=== PATIENT | female | born 1990 | race Caucasian/White ===

== ENCOUNTER 2022-02-13 06:00 | Inpatient (IN) | payer BC ==
[2022-02-14 22:44] VITALS: BMI 33.0
[2022-02-14] MEDS ORDERED: Misoprostol 200 MCG TAB PR PRN (22:59)
[2022-02-14] MEDS ORDERED: Ondansetron PF 4 MG/2 ML Vial IVP PRN (22:59)
[2022-02-14] MEDS ORDERED: hydrALAZINE 20 MG/ML VIAL SLOW IVP PRN (22:59)
[2022-02-14] MEDS ORDERED: Ibuprofen 800 MG TAB PO PRN (22:59)
[2022-02-14] MEDS ORDERED: Promethazine HCl 25 MG/ML VIAL IM PRN (22:59)
[2022-02-14] MEDS ORDERED: HYDROcodone/Acetaminophen 5/325 mg Tablet PO PRN ×2 (22:59)
[2022-02-14] MEDS ORDERED: Lidocaine 1% (PF) 30 ML VIAL SC PRN (22:59)
[2022-02-14] MEDS ORDERED: Butorphanol Tartrate 1 MG/ML VIAL SLOW IVP PRN (22:59)
[2022-02-14] MEDS ORDERED: NS w/ Oxytocin 30 units 500 ML IV SCH ×2 (23:00)
[2022-02-14] MEDS: Lactated Ringer's 1,000 ML IV SCH (23:24)
[2022-02-14 23:51] LABS: Hemoglobin 11.4 g/dL (12.0-15.5); Mean Corpuscular HGB CONC 34.4 g/dL (32.0-36.0); Mean Corpuscular Hemoglobin 31.1 pg (27.0-33.0); Mean Corpuscular Volume 90.4 fl (81.6-98.3); Mean Platelet Volume 11.8 fl (7.4-10.4); Platelet Count 207 10x3/uL (150-450); RBC Distribution Width 13.2 % (11.5-14.5); Red Blood Cell (RBC) Count 3.66 10x6/uL (3.90-5.03); White Blood Cell (WBC) Count 8.6 10x3/uL (3.5-10.5)
[2022-02-15 00:06] LABS: SARS-CoV-2 NAA Rapid Test Not Detected (NotDetected)
[2022-02-15 00:09] LABS: HBSAg Index 0.22 S/CO (0-0.99); Hep B Surf Ag Non-Reactive S/CO (NonReactive); Syphilis Antibody Nonreactive (Nonreactive); Syphilis Antibody Index 0.02 S/CO (<1.00 Non-Reactive)
[2022-02-15] MEDS ORDERED: Fentanyl 2 mcg/Bup 0.1% Cadd 100 ML ONE (05:27)
[2022-02-15] MEDS ORDERED: Promethazine HCl 25 MG/ML VIAL IM PRN (06:30)
[2022-02-15] MEDS ORDERED: ePHEDrine Sulfate 50 MG/10 ML VIAL SLOW IVP PRN (06:30)
[2022-02-15] MEDS ORDERED: diphenhydrAMINE 50 MG/ML VIAL IVP PRN (06:30)
[2022-02-15] MEDS ORDERED: Acetaminophen 325 MG TAB PO PRN (06:30)
[2022-02-15] MEDS ORDERED: Lactated Ringer's 500 ML IV PRN (06:30)
[2022-02-15] MEDS ORDERED: Moisturizing Cream (Eucerin) 113 GM JAR TOP PRN (06:30)
[2022-02-15] MEDS ORDERED: Communication Order-Pharmacy FS SCH (06:30)
[2022-02-15] MEDS ORDERED: Fentanyl 2 mcg/Bupivacaine 0.1% Cassette 100 ML EPIDURAL SCH (06:30)
[2022-02-15] MEDS ORDERED: Naloxone HCl 0.4 mg/ml Vial IVP PRN ×2 (06:30)
[2022-02-15] MEDS ORDERED: Ondansetron PF 4 MG/2 ML Vial IVP PRN ×2 (06:30→13:05)
[2022-02-15] MEDS ORDERED: hydrALAZINE 20 MG/ML VIAL SLOW IVP PRN (13:05)
[2022-02-15] MEDS ORDERED: Benzocaine-Menthol 82.5 ML CAN TOP PRN (13:05)
[2022-02-15] MEDS ORDERED: Bisacodyl 10 MG SUPP PR PRN (13:05)
[2022-02-15] MEDS ORDERED: HYDROcodone/Acetaminophen 5/325 mg Tablet PO PRN ×2 (13:05)
[2022-02-15] MEDS ORDERED: Lanolin Ointment 7 GM TUBE TOP PRN (13:05)
[2022-02-15] MEDS ORDERED: Milk Of Magnesia 30 ML UDCUP PO PRN (13:05)
[2022-02-15] MEDS ORDERED: NS w/ Oxytocin 30 units 500 ML IV SCH (13:05)
[2022-02-15] MEDS ORDERED: Misoprostol 200 MCG TAB VAG PRN (13:05)
[2022-02-15] MEDS ORDERED: Prenatal Vitamin 1 TAB PO SCH (13:30)
[2022-02-15] MEDS ORDERED: Docusate 100 MG CAP PO SCH (13:30)
[2022-02-15] MEDS: Ibuprofen 800 MG TAB PO SCH ×2 (13:34→22:10)
[2022-02-15] MEDS: Lactated Ringer's 1,000 ML IV SCH (15:04)
[2022-02-15] MEDS: Ferrous Sulfate 325 MG TAB PO SCH (18:08)
[2022-02-15] MEDS: Docusate 100 MG CAP PO SCH (22:09)
[2022-02-16] MEDS: Ibuprofen 800 MG TAB PO SCH (05:25)
[2022-02-16] MEDS: Ferrous Sulfate 325 MG TAB PO SCH (07:20)
[2022-02-16] MEDS: Docusate 100 MG CAP PO SCH (07:33)
[2022-02-16 08:09] VITALS: BP 132/72; TEMP 98.1
[2022-02-16] MEDS ORDERED: Prenatal Vitamin 1 TAB PO SCH (09:00)
[2022-02-18] MEDS ORDERED: Boostrix 0.5 ML (Tdap) VIAL (>/=7 yrs of age) IM ONE (13:05)
== END 2022-02-16 14:40 | disposition home or self-care (01) | DRG 807 ==
LOC: CSHLD 02-14 22:24 → CSHPED 02-15 15:32
PROVIDERS: ADMIT Obstetrics & Gynecology; ATTEND Advanced Practice Midwife
PROC: 10E0XZZ Delivery of Products of Conception, External Approach (ICD-10-PCS; principal; 2022-02-15)
PROC: 3E0334Z Introduction of Serum, Toxoid and Vaccine into Peripheral Vein, Percutaneous Approach (ICD-10-PCS; 2022-02-16)
DX: O26.893 Other specified pregnancy related conditions, third trimester (principal); Z37.0 Single live birth; Z67.11 Type A blood, Rh negative; Z3A.40 40 weeks gestation of pregnancy; Z88.0 Allergy status to penicillin; O69.89X0 Labor and delivery complicated by other cord complications, not applicable or unspecified; Z20.822 Contact with and (suspected) exposure to COVID-19
CPT/HCPCS: 36415; 51702; 85027; 85461; 86780; 86850; 86870; 86900; 86901; 87340; 90384; 96372; J2590; J7120; U0002